=== PATIENT | male | born 1985 | race African-American/Black ===

== ENCOUNTER 2017-01-07 18:02 | Emergency (ER) | payer MEDICAID, OTHER ==
[~2017-01-07] VITALS: Ht 182.9 cm; Wt 86.2 kg
[2017-01-07 18:28] VITALS: BP 126/97
[2017-01-07] MEDS ORDERED: Ondansetron ODT 8mg tab ORAL ONE (18:45)
--- NOTE | 2017-01-07 18:51 | Emergency Room Report ---
History of Present Illness General Chief Complaint: Flu Like Symptoms Source: Patient Present Illness HPI 31 y/o M c/o URI sxs x 7 days. Assoc sxs include nasal congestion, rhinorrhea, sore throat, post nasal drip, bodyaches, chills, and cough due to tickle in the throat. States they have not taken medication and report no improvement of symptoms. Has some nausea w/o vomiting. Denies any current f/c/d, abd pain, back pain, neck pain, photophobia, phonophobia, CP, SOB or headache. Allergies: Coded Allergies: No Known Allergies (Unverified , 01/07/17) Patient History Past Medical History: see triage record Past Surgical History: none Pertinent Family History: none Immunizations: UTD Reviewed Nursing Documentation: PMH: Agreed, PSxH: Agreed Nursing Documentation-PMH Past Medical History: No Stated History Review of Systems All Other Systems: negative except mentioned in HPI Physical Exam Vital Signs Date Time Temp Pulse Resp B/P (MAP) Pulse Ox O2 Delivery O2 Flow Rate FiO2 01/07/17 18:28 99.0 89 16 126/97 99 Room Air Sp02 EP Interpretation: reviewed, normal General Appearance: no apparent distress, alert, GCS 15, non-toxic Head: normocephalic, atraumatic Eyes: bilateral eye normal inspection, bilateral eye PERRL ENT: hearing grossly normal, no angioedema, normal voice, TMs + canals normal, uvula midline, tonsillar swelling, pharyngeal erythema, tonsillar exudate Neck: full range of motion, supple/symm/no masses Respiratory: chest non-tender, lungs clear, normal breath sounds, speaking full sentences Cardiovascular #1: regular rate, rhythm, no edema Musculoskeletal: back normal, gait/station normal, normal range of motion, non- tender Neurologic: alert, oriented x3, responsive, motor strength/tone normal, sensory intact, speech normal Psychiatric: judgement/insight normal, memory normal, mood/affect normal, no suicidal/homicidal ideation Skin: normal color, no rash, warm/dry, well hydrated Medical Decision Making PA Attestation Dr. Escobar is my supervising physician with whom patient management has been discussed with. Diagnostic Impression: Primary Impression: Strep pharyngitis ER Course Pt. presents to the ED c/o fever / sore throat Ddx considered but not limited to viral pharyngitis bacterial pharyngitis peritonsillar abscess tonsils stone and meningitis Vital signs: are WNL, pt. is afebrile H&PE are most consistent with strep throat ORDERS: none required at this time, the diagnosis is clinical ED INTERVENTIONS: zofran. DISCHARGE: At this time pt. is stable for d/c to home. Will provide printed patient care instructions, and any necessary prescriptions. Care plan and follow up instructions have been discussed with the patient prior to discharge. Last Vital Signs Date Time Temp Pulse Resp B/P (MAP) Pulse Ox O2 Delivery O2 Flow Rate FiO2 01/07/17 18:28 99.0 89 16 126/97 99 Room Air Status: unchanged Disposition: HOME, SELF-CARE Condition: Scripts Ondansetron Odt* (ZOFRAN ODT*) 4 Mg Tab.rapdis 4 MG ORAL Q8H Y for Nausea & Vomiting, #10 TAB 0 Refills Prov: PEGGY CHICAS P.A. 01/07/17 Prednisone* (PREDNISONE*) 50 Mg Tablet 50 MG ORAL 1 tab at once, #1 TAB 0 Refills Prov: PEGGY CHICAS P.A. 01/07/17 Amoxicillin/Potassium Clav 875-125* (AUGMENTIN 875-125 TABLET*) 1 Each Tablet 1 TAB ORAL TWICE A DAY for 10 Days, #20 TAB Prov: PEGGY CHICAS P.A. 01/07/17 Patient Instructions: Strep Throat Additional Instructions: Take medication as directed. Advised patient to use salt water gargle PRN. Advised patient to use chloraseptic as needed for throat pain in addition to APAP Q4H. Patient advised they can take Ibuprofen and Tylenol Q6H together for fever control as well. Educated patient on rhinitis and encouraged patient to use OTC nasal decongestants, nasal irrigation / saline sprays, and use of nasal suction such as NoseFrida. Educated patient on the benefits of the various OTC medications available (ie. H1 blockers, decongestants, nasal steroids, etc.). If sxs worsen or don't improve, please return sooner. Go to the ER if you develop SOB, CP, Rash, photophobia, neck pain, throat swelling occur, go to the ER immediately. PEGGY CHICAS Jan 07, 2017 18:51
[2017-01-07] MEDS ORDERED: AUGMENTIN 875-1 EAC1 ORAL (18:52)
[2017-01-07] MEDS ORDERED: ZOFRAN ODT4 MG ORAL (18:52)
[2017-01-07] MEDS ORDERED: PREDNISONE50 MG ORAL (18:52)
== END 2017-01-07 19:40 | disposition home or self-care (01) ==
LOC: EDBD 18:02 → EMR 19:23
DX: J02.0 Streptococcal pharyngitis (principal)
CPT/HCPCS: 99284; Q0162